=== PATIENT | male | born 1985 | race Caucasian/White ===

== ENCOUNTER 2021-02-22 07:52 | Inpatient (IN) | payer BC, OTHER ==
[~2021-02-22] VITALS: Ht 177.8 cm; Wt 64.0 kg
--- NOTE | 2021-02-22 07:59 | PHYS DOC ---
Adult General HPI HPI Patient is a 35-year-old male with a past medical history of Crohn's disease presenting with dehydration per patient. Also complains of diffuse cramping, nausea, vomiting, and nonbloody diarrhea for the last 3 to 4 days. States his last meal was on Saturday and has been unable to keep anything down since then. His last flare of this severity was 2 to 3 years ago. Denies fevers, chills. Usually goes to [facility] for management of his Crohn's disease. Indicates no family history of IBD. Denies tobacco, alcohol use. Has indicated that he uses marijuana 3-4 times a week for pain and sleep. He is fully vaccinated against COVID-19 Review of Systems Review of Systems Pain medication Fourteen body systems of review of systems have been reviewed. See HPI for pertinent positives and negative responses, other diehl all other systems are negative, non-pertinent or non-contributory Family History Family History RA - aunt Current Medications Current Medications Stelara monthly injection, due for at this time Steroid injection daily Allergies Allergies Iron dextran complex - anaphylactic shock Physical Exam Physical Exam Constitutional: Age-appropriate, appears in mild distress due to feeling poorly, nontoxic in overall appearance HENT: Normocephalic, atraumatic, bilateral external ears normal, oropharynx moist, no oral exudates, nose normal. Eyes: PERRLA, EOMI, conjunctiva normal, no discharge. Neck: Normal range of motion, no tenderness, supple, no stridor. Cardiovascular: Heart rate regular, sinus rhythm, no murmurs rubs or gallops Lungs & Thorax: Bilateral breath sounds clear to auscultation Abdomen: Bowel sounds normal, soft, diffuse tenderness to palpation, no masses, no pulsatile masses. Nonsurgical abdomen, no peritoneal signs Skin: Warm, dry, no erythema, no rash. Back: No tenderness, no CVA tenderness. Extremities: No tenderness, no cyanosis, no clubbing, ROM intact, no edema. Neurologic: Alert and oriented X 3, grossly normal motor & sensory function, no focal deficits noted. Psychologic: Affect normal, judgement normal, mood normal. Current Patient Data Vital Signs Vital Signs Date Time Temp Pulse Resp B/P (MAP) Pulse Ox O2 Delivery O2 Flow Rate FiO2 02/22/21 08:11 97.7 94 18 155/87 (109) 98 Room Air Vital Signs Date Time Temp Pulse Resp B/P (MAP) Pulse Ox O2 Delivery O2 Flow Rate FiO2 02/22/21 10:59 89 18 117/51 (73) 96 Room Air 02/22/21 08:11 97.7 Lab Results Laboratory Tests Test 02/22/21 08:59 02/22/21 10:00 02/22/21 10:05 White Blood Count 26.3 x10^3/uL Red Blood Count 4.95 x10^6/uL Hemoglobin 13.7 g/dL Hematocrit 40.7 % Mean Corpuscular Volume 82 fL Mean Corpuscular Hemoglobin 28 pg Mean Corpuscular Hemoglobin Concent 34 g/dL Red Cell Distribution Width 15.9 % Platelet Count 171 x10^3/uL Neutrophils (%) (Auto) 93 % Lymphocytes (%) (Auto) 2 % Monocytes (%) (Auto) 4 % Eosinophils (%) (Auto) 0 % Basophils (%) (Auto) 1 % Neutrophils # (Auto) 24.5 x10^3uL Lymphocytes # (Auto) 0.4 x10^3/uL Monocytes # (Auto) 1.0 x10^3/uL Eosinophils # (Auto) 0.0 x10^3/uL Basophils # (Auto) 0.4 x10^3/uL Platelet Estimate Pending Sodium Level 132 mmol/L Potassium Level 2.5 mmol/L Chloride Level 94 mmol/L Carbon Dioxide Level 26 mmol/L Anion Gap 12 Blood Urea Nitrogen 22 mg/dL Creatinine 1.4 mg/dL Estimated GFR (Cockcroft-Gault) 57.0 BUN/Creatinine Ratio 16 Glucose Level 97 mg/dL Calcium Level 5.9 mg/dL Magnesium Level 0.9 mg/dL Total Bilirubin 2.5 mg/dL Aspartate Amino Transf (AST/SGOT) 57 U/L Alanine Aminotransferase (ALT/SGPT) 39 U/L Alkaline Phosphatase 61 U/L Troponin I High Sensitivity 17 ng/L Total Protein 5.4 g/dL Albumin 2.0 g/dL Albumin/Globulin Ratio 0.6 Lactic Acid Level 1.8 mmol/L SARS-CoV-2 Antigen (Rapid) Negative Current Medications Medications (Trade) Dose Ordered Sig/Amanda Route PRN Reason Start Time Stop Time Status Last Admin Dose Admin Sodium Chloride 1,000 ml @ 1,000 mls/hr 1X ONCE IV 02/22/21 08:15 02/22/21 09:14 DC 02/22/21 08:34 Ondansetron HCl (Zofran) 4 mg 1X ONCE IVP 02/22/21 08:15 02/22/21 08:22 DC 02/22/21 08:35 Morphine Sulfate (Morphine 4mg Syringe) 4 mg 1X ONCE IV 02/22/21 08:15 02/22/21 08:22 DC 02/22/21 08:35 Ondansetron HCl (Zofran) 4 mg 1X ONCE IV 02/22/21 09:15 02/22/21 09:18 DC 02/22/21 09:19 Magnesium Sulfate 50 ml @ 25 mls/hr 1X ONCE IV 02/22/21 09:45 02/22/21 11:44 02/22/21 10:57 Calcium Chloride 2000 mg/Sodium Chloride 120 ml @ 240 mls/hr 1X ONCE IV 02/22/21 09:45 02/22/21 10:14 DC 02/22/21 10:06 Potassium Chloride (Klor-Con) 40 meq 1X ONCE PO 02/22/21 09:45 02/22/21 09:47 DC 02/22/21 10:06 Potassium Chloride/Sodium Chloride 1,000 ml @ 75 mls/hr 1X ONCE IV 02/22/21 09:45 02/22/21 23:04 02/22/21 10:07 Iohexol (Omnipaque 300 Mg/ml) 75 ml 1X ONCE IV 02/22/21 10:15 02/22/21 10:16 DC 02/22/21 10:10 Iohexol (Omnipaque 300 Mg/ml) 75 ml STK-MED ONCE .ROUTE 02/22/21 10:03 02/22/21 10:03 DC Info (Do NOT chart on this entry -- for MONITORING) 1 each PRN DAILY PRN MC SEE COMMENTS 02/22/21 10:15 02/24/21 10:14 Piperacillin Sod/ Tazobactam Sod 3.375 gm/Sodium Chloride 50 ml @ 100 mls/hr 1X ONCE IV 02/22/21 11:15 02/22/21 11:44 Morphine Sulfate (Morphine 4mg Syringe) 4 mg PRN Q2HR PRN IVP PAIN 02/22/21 11:15 02/23/21 11:14 Metoclopramide HCl (Reglan Vial) 10 mg 1X ONCE IVP 02/22/21 11:15 02/22/21 11:16 DC EKG EKG EKG ordered and interpreted by myself at 755 hours as sinus rhythm at 88 bpm, unremarkable intervals, no axis deviation, no acute ischemic findings, no STEMI Radiology/Procedures Radiology/Procedures EXAM: Abdomen and pelvis CT with intravenous contrast. HISTORY: Nausea and vomiting. Crohn's disease. TECHNIQUE: Computed tomographic images of the abdomen and pelvis were obtained following the administration of intravenous contrast. Multiplanar reformatting was performed. *One or more of the following individualized dose reduction techniques were utilized for this examination: 1. Automated exposure control. 2. Adjustment of the mA and/or kV according to patient size. 3. Use of iterative reconstruction technique. COMPARISON: 06/14/2014. FINDINGS: Evaluation of the lower thorax demonstrates no infiltrate or pleural effusion. No hepatic lesion is seen. There is a prominent pancreatic duct. No pancreatic lesion is seen. The spleen is upper normal in size. There are glands are unremarkable. There is a 2.6 cm simple left renal cyst. There is also a tiny cortical cyst within the right kidney. Follow-up is not routinely performed for simple cysts. There is no hydronephrosis. The urinary bladder is unremarkable. There is severe circumferential wall thickening involving loops of mid and distal small bowel and the entire colon. There is dilatation of loops of small b owel within the mid and lower abdomen. There is surrounding inflammatory stranding and trace fluid. There are enlarged mesenteric lymph nodes which are likely reactive. There is no convincing pneumatosis. There is no free air. There is dense contrast within the posterior gastric diverticulum, an incidental finding. The aorta is normal in caliber. There is no suspicious osseous lesion. IMPRESSION: Severe circumferential wall thickening involving loops of mid and distal small bowel and the entire colon, with associated surrounding inflammatory stranding, trace fluid and reactive mesenteric lymphadenopathy. Given the history of Crohn's disease, this likely due to active inflammatory bowel disease. There is dilatation of loops of small bowel within the mid lower abdomen, without a clear transition point to suggest obstruction. Electronically signed by: Candi Mccullough MD (02/22/2021 10:29 AM) [id number] Heart Score C/O Chest Pain: No HEART Score for Chest Pain: HEART Score for Chest Pain Response (Comments) Value History Slighlty/Non-Suspicious 0 ECG Normal 0 Age < 45 0 Risk Factors 1 or 2 Risk Factors 1 Troponin < Normal Limit 0 Total 1 Risk Factors: Risk Factors: DM, Current or recent (<one month) smoker, HTN, HLP, family history of CAD, obesity. Risk Scores: Risk Factors: DM, Current or recent (<one month) smoker, HTN, HLP, family history of CAD, obesity. Course & Med Decision Making Course & Med Decision Making ABCs unremarkable HPI physical exam and comprehensive ER work-up concerning for Crohn's flare with significant electrolyte abnormalities I disclosed high risk nature of patient's electrolyte imbalance and need for hospitalization for continued inpatient medical management. Patient and father at bedside are both amenable to this plan I contacted hospitalist and discussed case, patient was excepted under the care of Dr. Bassett for continued inpatient medical management Prior to admission, patient received IV Zosyn, calcium, normal saline, potassium and magnesium supplementation Dragon Disclaimer Dragon Disclaimer This electronic medical record was generated, in whole or in part, using a voice recognition dictation system. Departure Departure: Impression: Primary Impression: Crohn's colitis Additional Impressions: Electrolyte abnormality Elevated serum creatinine Nausea, vomiting, and diarrhea Disposition: ADMITTED INPATIENT Admitting Physician: Wayne Bassett Condition: STABLE Referrals: PCP,NO (PCP) Problem Qualifiers OANH SCHMITZ DO Feb 22, 2021 07:59
[2021-02-22] MEDS ORDERED: MORPHINE SULFATE 4 MG/ML DISP.SYRIN. IV ONE (08:15)
[2021-02-22] MEDS ORDERED: IV NORMAL SALINE 1,000ML 1,000 ML IV ONE (08:15)
[2021-02-22] MEDS ORDERED: ONDANSETRON PF 4 MG/2 ML VIAL. IVP ONE (08:15)
[2021-02-22 09:14] LABS: BASO # 0.4 x10^3/uL (0.0-0.2); BASO % 1 % (0-3); EOS % 0 % (0-3); HEMATOCRIT 40.7 % (39.0-53.0); HEMOGLOBIN 13.7 g/dL (13.0-17.5); LYMPH # 0.4 x10^3/uL (1.0-4.8); LYMPH % 2 % (24-48); MEAN CORPUSCULAR HEMOGLOBIN 28 pg (25-35); MEAN CORPUSCULAR HGB CONC 34 g/dL (31-37); MEAN CORPUSCULAR VOLUME 82 fL (79-100); MONO % 4 % (0-9); NEUT # 24.5 x10^3uL (1.8-7.7); NEUT % 93 % (31-73); PLATELET COUNT 171 x10^3/uL (140-400); RED BLOOD COUNT 4.95 x10^6/uL (4.30-5.70); RED CELL DISTRIBUTION WIDTH 15.9 % (11.5-14.5); WHITE BLOOD COUNT 26.3 x10^3/uL (4.0-11.0)
[2021-02-22] MEDS ORDERED: ONDANSETRON PF 4 MG/2 ML VIAL. IV ONE (09:15)
[2021-02-22 09:33] LABS: ALBUMIN/GLOBULIN RATIO 0.6 (1.0-1.7); CREATININE 1.4 mg/dL (0.7-1.3); TOTAL BILIRUBIN 2.5 mg/dL (0.2-1.0); TOTAL PROTEIN 5.4 g/dL (6.4-8.2)
[2021-02-22 09:37] LABS: CALCIUM 5.9 mg/dL (8.5-10.1); POTASSIUM 2.5 mmol/L (3.5-5.1)
[2021-02-22] MEDS ORDERED: POTASSIUM CL 40MEQ IN 0.9%NACL 1,000 ML IV ONE (09:45)
[2021-02-22] MEDS ORDERED: MAGNESIUM SULFATE 2GM 50 ML IV ONE (09:45)
[2021-02-22] MEDS ORDERED: POTASSIUM CHLORIDE 20 MEQ TABLET.ER. PO ONE (09:45)
[2021-02-22] MEDS ORDERED: CALCIUM CHLORIDE 2,000 MG in IV NORMAL SALINE 100ML 100 ML IV ONE (09:45)
[2021-02-22] MEDS ORDERED: IOHEXOL 300 MG/ML 75 ML VIAL. ONE (10:03)
[2021-02-22] MEDS ORDERED: CONTRAST GIVEN. MC PRN (10:15)
[2021-02-22] MEDS ORDERED: IOHEXOL 300 MG/ML 75 ML VIAL. IV ONE (10:15)
--- NOTE | 2021-02-22 10:25 | RAD ---
EXAM: Chest, single view. HISTORY: Nausea and vomiting. COMPARISON: None. FINDINGS: Frontal views of the chest are obtained. There is no infiltrate, pleural effusion or pneumo thorax. The heart is normal in size. IMPRESSION: No acute pulmonary finding. Electronically signed by: Candi Mccullough MD (02/22/2021 10:23 AM) [id number]
--- NOTE | 2021-02-22 10:31 | RAD ---
EXAM: Abdomen and pelvis CT with intravenous contrast. HISTORY: Nausea and vomiting. Crohn's disease. TECHNIQUE: Computed tomographic images of the abdomen and pelvis were obtained following the administ ration of intravenous contrast. Multiplanar reformatting was performed. *One or more of the following individualized dose reduction techniques were utilized for this examina tion: 1. Automated exposure control. 2. Adjustment of the mA and/or kV according to patient size. 3. Use of iterative reconstruction technique. COMPARISON: 06/14/2014. FINDINGS: Evaluation of the lower thorax demonstrates no infiltrate or pleural effusion. No hepatic l esion is seen. There is a prominent pancreatic duct. No pancreatic lesion is seen. The spleen is uppe r normal in size. There are glands are unremarkable. There is a 2.6 cm simple left renal cyst. There is also a tiny cortical cyst within the right kidney. Follow-up is not routinely performed for simple cysts. There is no hydronephrosis. The urinary bladder is unremarkable. There is severe circumferential wall thickening involving loops of mid and distal small bowel and the entire colon. There is dilatation of loops of small bowel within the mid and lower abdomen. There is surrounding inflammatory stranding and trace fluid. There are enlarged mesenteric lymph nodes which are likely reactive. There is no convincing pneumatosis. There is no free air. There is dense contras t within the posterior gastric diverticulum, an incidental finding. The aorta is normal in caliber. T here is no suspicious osseous lesion. IMPRESSION: Severe circumferential wall thickening involving loops of mid and distal small bowel and the entire colon, with associated surrounding inflammatory stranding, trace fluid and reactive mesent maddie lymphadenopathy. Given the history of Crohn's disease, this likely due to active inflammatory celestine wel disease. There is dilatation of loops of small bowel within the mid lower abdomen, without a marcy r transition point to suggest obstruction. Electronically signed by: Candi Mccullough MD (02/22/2021 10:29 AM) [id number]
[2021-02-22] MEDS ORDERED: METOCLOPRAMIDE HCL 10 MG/2 ML VIAL. IVP ONE (11:15)
[2021-02-22] MEDS ORDERED: MORPHINE SULFATE 4 MG/ML DISP.SYRIN. IVP PRN (11:15)
[2021-02-22] MEDS ORDERED: PIPERACILLIN/TAZOBACTAM 3.375 GM in IV NORMAL SALINE 50ML 50 ML IV ONE ×2 (11:15→19:15)
[2021-02-22 11:55] LABS: BACTERIA,URINE 0 /HPF (0-FEW); BILIRUBIN,URINE NEG (NEG); CLARITY,URINE CLEAR; COLOR,URINE YELLOW; GLUCOSE,URINE NEG (NEG); NITRITE,URINE NEG (NEG); RBC,URINE OCC /HPF (0-2); SQUAMOUS EPITHELIAL CELL,UR FEW /LPF; UROBILINOGEN,URINE 0.2 mg/dL (0.2 mg/dL)
--- NOTE | 2021-02-22 11:56 | EKG ---
[address] [address] Test Date: 2021-02-22 Test Time: 10:49:32 Pat Name: ABBY KANG Department: Room: 120 A Gender: M Stage Driver: : 1985 Requested By: OANH SCHMITZ Order Number: [id number] Reading MD: Korey Toledo Measurements Intervals [place] Rate: 88 P: 58 NM: 114 QRS: 52 QRSD: 98 T: 49 QT: 386 QTc: 471 Interpretive Statements SINUS RHYTHM NORMAL ECG RI6.02 No previous ECG available for comparison Electronically Signed On 02-26-2021 9:29:37 SYSTEMS SPEC by Korey Toledo
[2021-02-22 12:46] VITALS: BP 111/70
[2021-02-22 12:49] LABS: % LYMPHS 2 % (24-48); % MONOS 2 % (0-10); % SEGS 96 % (35-66)
[2021-02-22 12:50] LABS: PLT ESTIMATE ADEQUATE (ADEQUATE)
--- NOTE | 2021-02-22 14:47 | NUR ---
Nursing note PT arrived on the floor from the ED by a cherri with complains of nausea and pain, PT placed in room, admission questions asked, PT verbalized no other needs, call light within reach, waiting to be seen by the
[2021-02-22 16:07] LABS: CREATININE 1.1 mg/dL (0.7-1.3); GFR 75.3; MAGNESIUM 1.9 mg/dL (1.8-2.4); POTASSIUM 3.2 mmol/L (3.5-5.1)
--- NOTE | 2021-02-22 16:53 | HP ---
DATE OF SERVICE: 02/22/2021 ADMIT DATE: 02/22/2021 HISTORY OF PRESENT ILLNESS: The patient is a 35-year-old male patient who presented to the Emergency Room with a complaint of flare-up of his Crohn's disease. Apparently, this started about 5 days ago with diffuse cramping abdominal pain, nausea, vomiting, and nonbloody diarrhea. His last meal was on Saturday and has been unable to keep anything down since then. His last flare-up of this severity was about 2-3 years ago. He denied any chills, rigors or fever. He usually follows at [facility] for management of his Crohn's disease. 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 Braun. He stated he was started on Stelara about 6 years ago and since then, the flare-ups are much less. He was evaluated extensively in the Emergency Room and was found to have marked leukocytosis. In fact, his white cell count was up to 26,300. He also has multiple electrolyte abnormalities including hyponatremia, hypokalemia, mildly elevated serum creatinine and marked hypocalcemia. He is jaundiced with a total bilirubin of 2.5. Has severe protein-calorie malnutrition with serum albumin of only 2 grams per liter. His urinalysis was essentially unremarkable. He was admitted with a flare-up of his Crohn's disease with multiple electrolyte abnormalities. He was treated with IV fluid, magnesium sulfate, calcium chloride and potassium chloride and was admitted to continue with the IV fluid and electrolyte supplementation together with pain management as well as IV antibiotics given his white cell count was very high. His CT scan of the abdomen showed that he has severe circumferential wall thickening involving loops of the mid and distal small bowel and the entire colon with associated surrounding inflammatory stranding, trace fluid and reactive mesenteric lymphadenopathy. Given the history of Crohn's disease, this is likely due to active inflammatory bowel disease. There is dilatation of loops of the small bowel within the mid to lower abdomen without a clear transition point to suggest obstruction. PAST MEDICAL HISTORY: Significant for Crohn's disease as he has had it for more than 22 years. PAST SURGICAL HISTORY: Significant for 3 surgeries for Crohn's disease including what seemed to be probably a gastrojejunostomy. He underwent esophagogastroduodenoscopy and colonoscopy numerous times. In fact, he is scheduled for a colonoscopy in 2 weeks' time. ALLERGIES: HE IS ALLERGIC TO IRON DEXTRAN INFUSION. MEDICATIONS: His medication list is not available for us and we might have to call his pharmacy to find out exactly, but one thing that he is sure about is that he is on Stelara 90 mcg subQ every 4 weeks. He is also on calcium and multivitamin and vitamin D, according to him. FAMILY HISTORY: He has 1 younger sister and 1 older brother, both are healthy. Both parents are alive and have no medical problems. SOCIAL HISTORY: He is single, has no children. He does not smoke. He drinks alcohol occasionally and occasionally uses marijuana. 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 REVIEW OF SYSTEMS: The patient denied any blurring of vision, cataracts, glaucoma or macular degeneration. Denied any earache, tinnitus or sensorineural deafness. Denied nosebleed, stuffy nose or postnasal drip. Denied any sore throat, sore tongue, toothache, hoarseness of voice or difficulty swallowing. Does admit to weight loss. Did complain of diarrhea, but no constipation, no hematochezia or melena. Denied any dysuria, frequency or hematuria. Did complain that his urine output was poor over the last 3 days. Denied any chest pain, shortness of breath, orthopnea, paroxysmal nocturnal dyspnea. Denied any cough, phlegm or hemoptysis. Denied chills, rigors or fever. PHYSICAL EXAMINATION: GENERAL: On arrival to the Emergency Room, he looked well and was clearly in no apparent respiratory distress. There was no pallor, jaundice, cyanosis or thyromegaly. No jugular venous distention. No lower limb edema. VITAL SIGNS: Her heart rate was 94, blood pressure 155/87, his temperature was 97.7, respiratory rate was 18 and oxygen saturation was 98%. HEAD, EYES, EARS, NOSE, AND THROAT: Showed normocephalic, atraumatic. NECK: Supple. HEART: Normal first and second heart sounds. No gallop or murmur. CHEST: Clear to auscultation. No crepitation or rhonchi. ABDOMEN: Scaphoid, soft with midline surgical scars from previous surgery. There is mild tenderness in the right lower quadrant. No guarding or rigidity. No organomegaly. All hernial orifice intact. Bowel sounds normal. NEUROLOGIC: He was grossly intact. LABORATORY DATA: His lab work on arrival showed a white cell count of 26,300, hemoglobin 13.7, hematocrit 40.7, MCV 82 and platelet count of 171,000, with a manual differential showed 93% polymorphs, 2% lymphocytes, 4% monocytes and 0% eosinophils. Serum sodium was 132, potassium 2.5, chloride 94, bicarbonate 26, anion gap of 12, BUN 22, creatinine 1.4. Estimated GFR was 57 mL per minute. His glucose was 97, calcium was 5.9, magnesium was 0.9. Lactic acid was 1.8. Total bilirubin and AST are elevated. ALT and alkaline phosphatase are normal. Troponin I was only 17. Total protein was 5.4, albumin was 2. His urinalysis essentially unremarkable, and his coronavirus by PCR was not detectable. His chest x-ray showed no acute pulmonary finding, and a CT scan of the abdomen and pelvis showed the patient has severe circumferential wall thickening involving loops of mid and distal small bowel and the entire colon with associated surrounding inflammatory stranding, trace fluid and reactive mesenteric lymphadenopathy. Given the history of Crohn's disease, this is likely due to active inflammatory bowel disease. There is dilatation of loops of the small bowel within the mid to lower abdomen without a clear transition point to suggest obstruction. ASSESSMENT AND PLAN: We will continue with IV fluid. We will replenish his potassium, magnesium and calcium. Continue with IV fluid. I will contact Dr. Braun in [facility] to see whether he needs to be on high-dose steroids or other medication for flare-up of his Crohn's disease. THOR MÉNDEZ: Diallo TID: [id number]
[2021-02-22] MEDS: MORPHINE SULFATE 4 MG/ML DISP.SYRIN. IV PRN ×2 (16:54→22:29)
[2021-02-22] MEDS: ONDANSETRON PF 4 MG/2 ML VIAL. IVP PRN ×2 (16:55→22:30)
[2021-02-22 17:30] VITALS: BP 113/74
[2021-02-22] MEDS: CALCIUM CARBONATE 500 MG TABLET PO SCH (18:21)
[2021-02-22] MEDS ORDERED: ACETAMINOPHEN 325 MG TABLET PO PRN (18:45)
[2021-02-22] MEDS: BUDESONIDE 3 MG CAP.ER.24H. PO SCH (20:26)
[2021-02-22] MEDS: MELATONIN 3 MG TABLET PO PRN (22:28)
[2021-02-22 23:13] VITALS: BP 119/77
[2021-02-23] MEDS: PIPERACILLIN/TAZOBACTAM 3.375 GM in IV NORMAL SALINE 50ML 50 ML IV SCH ×4 (00:26→17:45)
[2021-02-23 05:56] VITALS: BP 101/67
[2021-02-23 06:21] LABS: BASO % 0 % (0-3); EOS # 0.1 x10^3/uL (0.0-0.7); EOS % 1 % (0-3); HEMATOCRIT 37.7 % (39.0-53.0); HEMOGLOBIN 12.8 g/dL (13.0-17.5); LYMPH # 0.4 x10^3/uL (1.0-4.8); LYMPH % 4 % (24-48); MEAN CORPUSCULAR HEMOGLOBIN 28 pg (25-35); MEAN CORPUSCULAR HGB CONC 34 g/dL (31-37); MEAN CORPUSCULAR VOLUME 83 fL (79-100); MONO # 0.4 x10^3/uL (0.0-1.1); MONO % 4 % (0-9); NEUT % 92 % (31-73); PLATELET COUNT 75 x10^3/uL (140-400); RED BLOOD COUNT 4.56 x10^6/uL (4.30-5.70); WHITE BLOOD COUNT 10.9 x10^3/uL (4.0-11.0)
[2021-02-23 06:33] LABS: ALBUMIN/GLOBULIN RATIO 0.6 (1.0-1.7); CALCIUM 7.7 mg/dL (8.5-10.1); GFR 84.1; MAGNESIUM 2.2 mg/dL (1.8-2.4); POTASSIUM 3.2 mmol/L (3.5-5.1); TOTAL BILIRUBIN 3.2 mg/dL (0.2-1.0); TOTAL PROTEIN 5.3 g/dL (6.4-8.2)
[2021-02-23] MEDS: CHOLECALCIFEROL (VITAMIN D3) 1,000 UNIT TABLET PO SCH (08:33)
[2021-02-23] MEDS: BUDESONIDE 3 MG CAP.ER.24H. PO SCH (08:33)
[2021-02-23] MEDS: CALCIUM CARBONATE 500 MG TABLET PO SCH ×3 (08:33→17:45)
[2021-02-23 10:51] VITALS: BP 100/65
[2021-02-23] MEDS: POTASSIUM CL 40MEQ D5-0.45NACL 1,000 ML IV SCH (12:39)
[2021-02-23] MEDS: POTASSIUM CHLORIDE 20 MEQ TABLET.ER. PO SCH ×2 (14:03→20:17)
[2021-02-23] MEDS: MORPHINE SULFATE 4 MG/ML DISP.SYRIN. IV PRN ×2 (14:05→20:16)
[2021-02-23 14:58] VITALS: BP 99/63
--- NOTE | 2021-02-23 17:10 | NUR ---
PT SISTER BROUGHT HIS Q4WEEK INJECTION FOR HIS CROHN'S DISEASE. PT SELF ADMINISTERS THIS.
[2021-02-23 18:55] VITALS: BP 88/51
[2021-02-23] MEDS: ONDANSETRON PF 4 MG/2 ML VIAL. IVP PRN (20:16)
[2021-02-23] MEDS: MELATONIN 3 MG TABLET PO PRN (20:16)
--- NOTE | 2021-02-23 20:33 | PN ---
DATE: 02/23/2021 SUBJECTIVE: The patient is resting, slightly propped up in bed, in no apparent distress. On questioning him, he denied any further episodes of nausea, vomiting. Denied any diarrhea. Denied any chills, rigors or fever. PHYSICAL EXAMINATION: GENERAL: When I examined him today, he looked well and was clearly in no apparent respiratory distress. There was no pallor, jaundice, cyanosis or thyromegaly. No jugular venous distention. No limb edema. VITAL SIGNS: His heart rate was 63, blood pressure was 100/65, temperature 97.9, respiratory rate was 18 and oxygen saturation was 96% on room air. HEAD, EYES, EARS, NOSE, AND THROAT: Normocephalic, atraumatic. NECK: Supple. HEART: Normal first and second heart sounds, no gallop or murmur. CHEST: Clear to auscultation, no crepitation or rhonchi. ABDOMEN: Scaphoid, soft, nontender. NEUROLOGIC: He was grossly intact. His intake and output are incompletely recorded. LABORATORY DATA: His lab work as of this morning showed a white cell count came down to 10,900, hemoglobin 12.8, hematocrit of 7.7, MCV 83, and a platelet count of 75,000 with a manual differential showed 92% polymorphs, 4% lymphocytes and 4% monocytes. His chemistry showed that his serum sodium was 138, potassium 3.2, chloride 103, bicarbonate 26, anion gap of 9, BUN 16, creatinine 1, estimated GFR was 84 mL per minute. His glucose was 93, calcium was 7.7, magnesium was 2.2. Total bilirubin, AST, ALT elevated. Alkaline phosphatase normal. Total protein 5.3, albumin was 2. His blood culture has grown gram-negative rods in 1 out of 4 bottles. ASSESSMENT: 1. Flareup of Crohn's disease. 2. Multiple electrolyte abnormalities including hyponatremia that is resolved, hypokalemia continue to be an issue, his potassium was only 3.2, hypomagnesemia improved from 0.9 to 2.2. The patient is growing gram-negative bacteremia. PLAN: My plan is to continue with IV fluid. Continue with oral steroids. Continue with IV antibiotic and await the result of the culture and sensitivity. I did contact Dr. Braun twice, but so far, I have not received any call from him. CAROLYN DR: Diallo TID: [id number]
[2021-02-24] MEDS: ONDANSETRON PF 4 MG/2 ML VIAL. IVP PRN ×2 (00:21→14:45)
[2021-02-24] MEDS: MORPHINE SULFATE 4 MG/ML DISP.SYRIN. IV PRN ×5 (00:21→22:09)
[2021-02-24] MEDS: PIPERACILLIN/TAZOBACTAM 3.375 GM in IV NORMAL SALINE 50ML 50 ML IV SCH ×4 (00:22→17:37)
[2021-02-24] MEDS: POTASSIUM CL 40MEQ D5-0.45NACL 1,000 ML IV SCH ×3 (03:41→14:46)
[2021-02-24 06:01] VITALS: BP 114/63
[2021-02-24 06:17] LABS: HEMATOCRIT 35.2 % (39.0-53.0); HEMOGLOBIN 11.7 g/dL (13.0-17.5); RED BLOOD COUNT 4.21 x10^6/uL (4.30-5.70); RED CELL DISTRIBUTION WIDTH 15.7 % (11.5-14.5); WHITE BLOOD COUNT 8.6 x10^3/uL (4.0-11.0)
[2021-02-24 06:24] LABS: CALCIUM 7.5 mg/dL (8.5-10.1); CREATININE 0.8 mg/dL (0.7-1.3); GFR 108.8; MAGNESIUM 2.3 mg/dL (1.8-2.4); POTASSIUM 4.2 mmol/L (3.5-5.1)
[2021-02-24] MEDS: CHOLECALCIFEROL (VITAMIN D3) 1,000 UNIT TABLET PO SCH (07:39)
[2021-02-24] MEDS: CALCIUM CARBONATE 500 MG TABLET PO SCH ×3 (07:39→17:37)
[2021-02-24] MEDS: POTASSIUM CHLORIDE 20 MEQ TABLET.ER. PO SCH ×3 (07:39→22:06)
[2021-02-24] MEDS: BUDESONIDE 3 MG CAP.ER.24H. PO SCH (07:40)
[2021-02-24 10:45] VITALS: BP 123/64
[2021-02-24 14:56] VITALS: BP 124/82
--- NOTE | 2021-02-24 17:05 | NUR ---
DR. ZIMMERMAN WAITING ON SENSITIVITY TO COME BACK SO HE CAN SEND PT HOME TOMORROW ON ORAL ANTIBIOTICS.
[2021-02-24 19:00] VITALS: BP 134/93
[2021-02-24] MEDS: MELATONIN 3 MG TABLET PO PRN (22:09)
[2021-02-24 23:00] VITALS: BP 129/81
--- NOTE | 2021-02-24 23:38 | PN ---
SUBJECTIVE: The patient is resting, slightly propped up in bed, in no apparent respiratory distress. He is awake, alert. On questioning him, he denied any complaint, particularly denied any nausea, vomiting or diarrhea. Denied any abdominal pain. PHYSICAL EXAMINATION: GENERAL: When I examined him, he was pale, but not jaundiced or cyanosed. No thyromegaly. No jugular venous distention. No limb edema. VITAL SIGNS: His heart rate was 55, blood pressure was 123/64, temperature was 97.4, respiratory rate was 18 and oxygen saturation was 97% on room air. HEAD, EYES, EARS, NOSE, AND THROAT: Normocephalic, atraumatic. NECK: Supple. HEART: Normal first and second heart sounds. No gallop, rub or murmur. CHEST: Clear to auscultation, no crepitation or rhonchi. ABDOMEN: Distended, soft, nontender. NEUROLOGIC: He was grossly intact. His intake was 1780, no output was recorded. LABORATORY DATA: His lab work showed a white cell count of 8600, hemoglobin 11.7, hematocrit 35, MCV 84 and platelet count of 64,000. His chemistry showed a serum sodium 139, potassium 4.2, chloride 107, bicarbonate 24, anion gap 8, BUN 11, creatinine was 0.8. Estimated GFR was 108 mL per minute. His glucose 118, calcium was 7.5, magnesium was 2.3. His blood culture has grown gram-negative rods identified as Escherichia coli, the sensitivity was still pending. ASSESSMENT: 1. Flareup of Crohn's disease. 2. Hyponatremia, resolved. 3. Hypokalemia, resolved. 4. Hypomagnesemia, resolved. 5. He has gram-negative bacteremia with growth of Escherichia coli, sensitivity still pending. PLAN: To continue with IV fluid, IV steroids, IV antibiotic. I spoke with the microbiology lab, who stated that sensitivity will be available tomorrow and probably will be able to discharge him home tomorrow to follow with his wrapper stemmer hand as an outpatient. I left 3 messages so far on Saturday, , and today, Saturday with Dr. Londono and [facility] and have not been able to talk to any wrapper stemmer hand there. CAROLYN DR: Diallo TID: [id number]
[2021-02-25] MEDS: PIPERACILLIN/TAZOBACTAM 3.375 GM in IV NORMAL SALINE 50ML 50 ML IV SCH ×3 (00:15→13:06)
[2021-02-25] MEDS: ONDANSETRON PF 4 MG/2 ML VIAL. IVP PRN (00:15)
[2021-02-25] MEDS: POTASSIUM CL 40MEQ D5-0.45NACL 1,000 ML IV SCH ×2 (02:20→09:44)
[2021-02-25 05:57] VITALS: BP 112/76
[2021-02-25 07:57] LABS: HEMATOCRIT 37.1 % (39.0-53.0); HEMOGLOBIN 12.3 g/dL (13.0-17.5); RED BLOOD COUNT 4.4 x10^6/uL (4.30-5.70); RED CELL DISTRIBUTION WIDTH 15.9 % (11.5-14.5); WHITE BLOOD COUNT 4.9 x10^3/uL (4.0-11.0)
[2021-02-25 08:07] LABS: ALBUMIN 1.9 g/dL (3.4-5.0); ALBUMIN/GLOBULIN RATIO 0.6 (1.0-1.7); CALCIUM 7.5 mg/dL (8.5-10.1); CREATININE 0.9 mg/dL (0.7-1.3); POTASSIUM 5.2 mmol/L (3.5-5.1); TOTAL BILIRUBIN 1.3 mg/dL (0.2-1.0); TOTAL PROTEIN 5.3 g/dL (6.4-8.2)
[2021-02-25] MEDS: CALCIUM CARBONATE 500 MG TABLET PO SCH ×2 (08:47→13:06)
[2021-02-25] MEDS: CHOLECALCIFEROL (VITAMIN D3) 1,000 UNIT TABLET PO SCH (08:48)
[2021-02-25] MEDS: BUDESONIDE 3 MG CAP.ER.24H. PO SCH (08:48)
[2021-02-25] MEDS: POTASSIUM CHLORIDE 20 MEQ TABLET.ER. PO SCH ×2 (09:00→13:07)
--- NOTE | 2021-02-25 10:00 | NUR ---
Nursing note: Pt's potassium lab result 5.2 (H), Dr. Bassett notified. Potassium discontinued per Dr Bassett's verbal order.
[2021-02-25 10:52] VITALS: BP 106/70
[2021-02-25] MEDS ORDERED: CEFD300C PO (13:45)
[2021-02-25] MEDS ORDERED: PRED20TA PO (13:48)
--- NOTE | 2021-02-25 14:11 | DS ---
DATE OF DISCHARGE: 02/25/2021 HOSPITAL COURSE: The patient is a 35-year-old male patient who was admitted with recurrent bouts of nausea, vomiting, diarrhea and flareup of his Crohn's disease. He also spiked his temperature, has marked leukocytosis with a white cell count 26,000 and lab work showed multiple electrolyte abnormalities including hypokalemia, hyponatremia and hypomagnesemia. He was also dehydrated. He was started on IV fluid with potassium as well as we replenished his magnesium and started him on IV antibiotics in the form of Zosyn 3.375 grams IV every 6 hours. Eventually his blood culture has grown more than 100,000 colony forming units per mL of gram-negative rods identified as Escherichia coli that is basically pansensitive. He had no more nausea, no vomiting, no abdominal pain, no diarrhea. Has been hemodynamically stable, afebrile. A decision was made to discharge him home to follow with his primary diet technician registered at [facility]. PHYSICAL EXAMINATION: GENERAL: When I saw him today, he looked well and was clearly in no apparent respiratory distress. He was pale, not jaundiced, cyanosed, no lymphadenopathy, no thyromegaly, no jugular venous distention. No limb edema. VITAL SIGNS: His heart rate was 60, blood pressure was 106/70, temperature was 98.8, respiratory rate 20, and oxygen saturation was 99% on room air. HEAD, EYES, EARS, NOSE, AND THROAT: Normocephalic, atraumatic. NECK: Supple. HEART: Showed normal first and second heart sounds, no gallop or murmur. CHEST: Clear to auscultation, no crepitation or rhonchi. ABDOMEN: Distended, soft, nontender. NEUROLOGIC: He was grossly intact. His intake over the last 24 hours was 2000, no output was recorded. LABORATORY DATA: As of this morning, his white cell count was 4900, hemoglobin 12, hematocrit 37, MCV 84 and platelet count of 61,000. His chemistry showed a serum sodium 138, potassium 5.2, chloride 109, bicarbonate 25, anion gap of 4, BUN 6, creatinine 0.9. Estimated GFR was 95 mL per minute. His glucose was 78. His calcium was 7.5. Total bilirubin, AST, ALT, alkaline phosphatase are trending down. His total protein was 5.3, albumin was 1.9. His urinalysis essentially unremarkable and coronavirus PCR was negative. DISCHARGE MEDICATIONS: The patient was discharged home to continue on cefdinir 300 mg twice a day and prednisone 40 mg once a day for 7 days. ASSESSMENT: 1. Crohn's disease flareup. 2. Multiple electrolyte abnormalities including hypokalemia, hyponatremia, hypomagnesemia, resolved. 3. Dehydration, resolved. 4. Escherichia coli bacteremia, for which he was treated with IV Zosyn. He will be discharged on cefdinir 300 mg twice a day for [address]: Diallo TID: [id number]
--- NOTE | 2021-02-25 15:00 | NUR ---
Nursing note: Pt discharged to home per MD's order. At time of discharge patient alert and oriented x4, ambulatory, independent. Tele box and IV line removed. Discharge instruction provided. Pt was picked up by his friend.
== END 2021-02-25 14:30 | disposition home or self-care (01) | DRG 385 ==
LOC: ER 07:52 → 1 SOUTH 11:01
PROVIDERS: ADMIT Internal Medicine; ATTEND Internal Medicine
DX: K50.10 Crohn's disease of large intestine without complications (principal); E43 Unspecified severe protein-calorie malnutrition; N17.0 Acute kidney failure with tubular necrosis; E87.1 Hypo-osmolality and hyponatremia; R17 Unspecified jaundice; F12.90 Cannabis use, unspecified, uncomplicated; D72.829 Elevated white blood cell count, unspecified; E83.42 Hypomagnesemia; E83.51 Hypocalcemia; E86.0 Dehydration; E87.6 Hypokalemia; B96.89 Other specified bacterial agents as the cause of diseases classified elsewhere; B96.20 Unspecified Escherichia coli [E. coli] as the cause of diseases classified elsewhere; Z20.822 Contact with and (suspected) exposure to COVID-19; Z68.20 Body mass index [BMI] 20.0-20.9, adult
CPT/HCPCS: 36415; 71045; 74177; 80048; 80053; 81001; 83605; 83735; 84484; 85007; 85025; 85027; 87040; 87077; 87186; 87205; 87426; 93005; 96361; 96365; 96367; 96375; 96376; J2270; J2405; J2543; J2765; J3475; J7042; Q9967; U0003; 99285-25; J7030